=== PATIENT | female | born 1965 | race African-American/Black ===

== ENCOUNTER 2019-07-27 11:00 | Outpatient (CLI) | payer BC ==
[2019-07-27 13:15] LABS: Anion Gap 11 mmol/L (10-20); BUN (Urea Nitrogen) 19 mg/dL (9.8-20.1); Calc. Creatinine Clearance 0 mL/min (70-130); Calcium 9.6 mg/dL (7.8-10.44); Carbon Dioxide 30 mmol/L (22-29); Chloride 105 mmol/L (98-107); Estimated GFR-MDRD 89; Glucose 95 mg/dL (70-105); Potassium 4.8 mmol/L (3.5-5.1); Sodium 141 mmol/L (136-145)
== END 2019-07-27 11:01 | disposition home or self-care (01) ==
LOC: LABBT 11:00
PROVIDERS: ATTEND Neurological Surgery
DX: Z01.818 Encounter for other preprocedural examination (principal); M54.12 Radiculopathy, cervical region; M48.02 Spinal stenosis, cervical region
CPT/HCPCS: 80048; 93005; 93010

== ENCOUNTER 2019-08-05 07:02 | Day surgery (SDC) | payer BC ==
[2019-07-27 11:56] VITALS: BMI 40.0
--- NOTE | 2019-08-05 07:30 | HP ---
HISTORY OF PRESENT ILLNESS: Ms. Perla is a 54-year-old woman, presenting with a cervical radiculopathy and myelopathy. She was involved in a fall at work around 3 months ago, where she started developing headache and bilateral upper extremity pains. MRI scan provided on disk reveals [id number] central canal stenosis spanning C4 to . This seems to fit well with her symptoms. There are also signs of mild myelomalacia at the spinal cord. She hopes to discuss possible interventional treatment. PAST MEDICAL HISTORY: Significant for chronic pain syndrome, type 2 diabetes, gout, headaches, hypertension, and seasonal allergies. PAST SURGICAL HISTORY: Gastric bypass, hysterectomy, dorsal column stimulator, splenectomy, tubal ligations, stapedectomy, lymph node resection, and left breast biopsy. MEDICATIONS: 1. Atorvastatin. 2. Metoprolol. 3. Cyclobenzaprine. 4. Gabapentin. 5. Atenolol. 6. Tramadol. ALLERGIES: NO KNOWN DRUG ALLERGIES. PHYSICAL EXAMINATION: GENERAL: The patient is alert and oriented x3. NEUROLOGIC: Gait is mildly slowed. Upper extremity motor exam is normal. She has a positive Spurling maneuver bilaterally. Negative Sprague's. ASSESSMENT: Cervical spinal stenosis and myelopathy. PLAN: Dr. Be met with the patient, reviewed imaging, advocated for a C4 to ACDF. He explained to the patient the risks, benefits, and alternatives to the procedure. The patient expressed understanding and elected to move forward with surgery as discussed. I do believe the patient is mentally competent and capable of making medical decisions for herself. We will move forward with surgery as planned. Job ID: [id number]
[2019-08-05] MEDS ORDERED: Midazolam HCl 2 mg/2 ml Vial ONE (08:42)
[2019-08-05] MEDS ORDERED: Morphine 10 MG/ML VIAL ONE (08:45)
[2019-08-05] MEDS ORDERED: Morphine 4 MG/ML VIAL ONE ×5 (08:51→11:36)
--- NOTE | 2019-08-05 10:25 | OP ---
DATE OF PROCEDURE: 08/05/2019 DOUBLE CUT OFF SAW OPERATOR: Paul Damon PA-C INDICATION: Pain. DIAGNOSIS: Cervical stenosis with cervical radiculopathy. PROCEDURE PERFORMED: Anterior cervical diskectomy and fusion, C4 through C6. ANESTHESIA: General. DESCRIPTION OF PROCEDURE: The patient was brought into the operating room and placed under general anesthesia. She was placed on table in a supine position. A transverse incision was planned over the lateral aspect of the neck on the right. After prepping and draping and after an appropriate preoperative pause, the incision was created. The underlying platysma muscle was identified and incised. A blunt tissue plane anterior to the sternocleidomastoid muscle was used to gain access to the prevertebral space. Self-retaining retractors were placed in the wound for optimal exposure. After confirming the appropriate level with C-arm fluoroscopy, an annulotomy was performed in the C5-C6 disk space, where all disk material as well as anterior and posterior osteophytes were removed. After completing the decompression, a 7-mm lordotic PEEK cage packed with allograft and autograft material was placed in the interbody space. We then redirected our attention to the level above at C4-C5, where an annulotomy was performed. All the disk material as well as anterior and posterior osteophytes were removed. After completing the decompression, a 7-mm lordotic PEEK cage packed with allograft and autograft material was placed in the interbody space. We then placed an anterior cervical plate, which was fixed with 6 screws. Midline and lateral structures were inspected and found to be free from significant trauma. The wound was irrigated. Hemostasis was maintained throughout. The wound was then closed in anatomic layers and a pressure dressing was applied. There were no known procedural complications. Job ID: [id number]
[2019-08-05] MEDS ORDERED: Lidocaine 1% PF 5 ML VIAL ONE (10:28)
[2019-08-05] MEDS ORDERED: Rocuronium Bromide 10 MG/ML (10ML VIAL) ONE (10:28)
[2019-08-05] MEDS ORDERED: Dexamethasone 20 MG/5 ML VIAL ONE (10:28)
[2019-08-05] MEDS ORDERED: Ketorolac Tromethamine 30 MG/ML VIAL ONE (10:28)
[2019-08-05] MEDS ORDERED: Ondansetron PF 4 MG/2 ML Vial ONE (10:28)
[2019-08-05] MEDS ORDERED: Glycopyrrolate 0.2 MG/ML 5 ML SYRINGE ONE (10:28)
[2019-08-05] MEDS ORDERED: PHENYLEPHRINE-NS 100 MCG/ML 10 ML SYRINGE ONE (10:28)
[2019-08-05] MEDS ORDERED: PROPOFOL 200 MG/20 ML VIAL ONE (10:28)
[2019-08-05] MEDS ORDERED: Morphine 2 MG/ML SYRINGE ONE (10:50)
[2019-08-05] MEDS ORDERED: traMADol HCl 50 MG TAB ONE (15:01)
== END 2019-08-05 16:00 | disposition home or self-care (01) ==
LOC: SDC 07:02
PROVIDERS: ATTEND Neurological Surgery
PROC: 0RT30ZZ Resection of Cervical Vertebral Disc, Open Approach (ICD-10-PCS; principal; 2019-08-05)
PROC: 0RG2070 Fusion of 2 or more Cervical Vertebral Joints with Autologous Tissue Substitute, Anterior Approach, Anterior Column, Open Approach (ICD-10-PCS; principal; 2019-08-05)
PROC: 0RG20A0 Fusion of 2 or more Cervical Vertebral Joints with Interbody Fusion Device, Anterior Approach, Anterior Column, Open Approach (ICD-10-PCS; principal; 2019-08-05)
DX: M48.02 Spinal stenosis, cervical region (principal); M54.12 Radiculopathy, cervical region; I10 Essential (primary) hypertension; E11.9 Type 2 diabetes mellitus without complications; E78.5 Hyperlipidemia, unspecified; G89.4 Chronic pain syndrome; Z79.899 Other long term (current) drug therapy; Z88.5 Allergy status to narcotic agent
CPT/HCPCS: 76000; C1713; C1776; J0690; J1100; J1885; J2001; J2250; J2270; J2405; J2704